=== PATIENT | male | born 1980 | race Caucasian/White ===

== ENCOUNTER 2016-09-22 15:49 | Emergency (ER) | payer OTHER ==
[~2016-09-22] VITALS: Ht 188 cm; Wt 129.2 kg
[2016-09-22] MEDS ORDERED: MELA1TAB5 PO (15:56)
[2016-09-22] MEDS ORDERED: MAGN1CAP4 PO (15:56)
[2016-09-22] MEDS ORDERED: BUPR-83 PO (15:56)
[2016-09-22] MEDS ORDERED: XYLOCAINE 1%/SOD BICARB 20 ML VIAL INFIL ONE (15:57)
[2016-09-22 16:00] VITALS: TEMP 36.8; Ht 188 cm; Wt 129.2 kg
[2016-09-22 16:36] VITALS: BP 183/66; PULSE 81; O2SAT 96
--- NOTE | 2016-09-23 00:38 | EMERGENCY ROOM VISIT NOTE ---
History First contact with patient: 15:52 Chief Complaint: NEEDLE STICK Stated Complaint: NEEDLE STICK History of Present Illness The patient is a 36 year old male who presents to the Emergency Room with complaints of a puncture wound/laceration of the left thumb pad. 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 The patient reports significant bleeding from the wound. He rates his discomfort a 1 out of 10. Tetanus immunization is up-to-date, and the patient is [id number]. He is requesting a single suture in the wound for adequate closure. Source patient is Mr. Guille Claros. Attending physician is Dr. Oconnor. Review of Systems 6 system review was performed and was negative except for pertinent positives and negatives as indicated in history of present illness Past Medical/Surgical History Medical history sheet could not be located for dictation Family History Medical history sheet could not be located for dictation Social History Smoking Status: Never Smoker Alcohol Use: occasionally Marital Status: Housing Status: lives with family Occupation Status: employed Current/Historical Medications Scheduled Bupropion (Wellbutrin), 100 MG PO DAILY Magnesium Oxide (Magnesium), 500 MG PO DAILY Melatonin (Kp Melatonin), 3 MG PO HS Allergies Coded Allergies: Sulfa Antibiotics (Unverified Allergy, Unknown, HIVES, 09/22/16) Physical Exam Vital Signs Date Time Temp Pulse Resp B/P (MAP) Pulse Ox O2 Delivery O2 Flow Rate FiO2 09/22/16 16:36 81 18 183/66 96 Room Air 09/22/16 16:00 36.8 85 18 179/96 94 Room Air Physical Exam CONSTITUTIONAL: Healthy and well nourished. Alert and oriented X 3 with positive affect. MUSCULOSKELETAL: Examination shows a 2-3 mm laceration in the digital pad. No active bleeding noted. Capillary refill is less than 2 seconds. INTEGUMENTARY: No rash or other significant dermatologic conditions noted. NEUROLOGIC: Left thumb tip is sensory intact. Medical Decision & Procedures Procedure Laceration repair was performed by our physician editorial assistant student under my direct supervision, and after receiving verbal consent from the patient. Using buffered 1% lidocaine without epinephrine, good digital block anesthesia was administered. The fingertip was in painted with iodine, and the wound was thoroughly pressure irrigated with normal saline. A single 5-0 nylon simple interrupted suture was applied for good wound closure. ED Course Patient history and physical exam were performed. The patient signed informed consent for baseline HIV testing, and additional necessary labs will be performed. The patient deferred HIV postexposure prophylaxis given that the source patient is currently in patient status. I did discuss the case with Dr. Oconnor who ordered all necessary source patient labs. Laceration repair was performed under digital block anesthesia. The patient was provided additional verbal and written wound care instructions. Watch for any signs of developing infection. Ibuprofen or Tylenol as needed for pain. The patient denied any pain at the time of discharge, and was happy with plan of care. Medical Decision Impression Primary Impression: Laceration of left thumb Additional Impressions: Needlestick injury of finger of left hand Occupational blood-borne exposure Departure Information Referrals [place] Cerrato M.D. (PCP) Patient Instructions [facility] Problem Qualifiers Primary Impression: Laceration of left thumb Encounter type: initial encounter Damage to nail status: without damage Foreign body presence: without foreign body Qualified Codes: S61.012A - Laceration without foreign body of left thumb without damage to nail, initial encounter
== END 2016-09-22 16:38 | disposition home or self-care (01) ==
LOC: EDUNIT# 15:49 → C.EDD 15:51
DX: S61.012A Laceration without foreign body of left thumb without damage to nail, initial encounter (principal); Z20.6 Contact with and (suspected) exposure to human immunodeficiency virus [HIV]; Z77.21 Contact with and (suspected) exposure to potentially hazardous body fluids; W46.1XXA Contact with contaminated hypodermic needle, initial encounter